=== PATIENT | female | born 1985 | race African-American/Black ===

== ENCOUNTER 2016-07-06 13:37 | Emergency (ER) | payer BC ==
[~2016-07-06] VITALS: Ht 160 cm; Wt 77.0 kg
[~2016-07-06 13:37] MED LIST: HYDR25 PO; PRED20 PO
[2016-07-06 13:49] VITALS: BP 134/66; PULSE 89; RESP 17; TEMP 97.9; O2SAT 99
[2016-07-06] MEDS ORDERED: diphenhydrAMINE HCL 50 MG/ML VIAL IV PUSH ONE (14:00)
[2016-07-06] MEDS ORDERED: prenatl vitamin (14:02)
[2016-07-06] MEDS ORDERED: SODIUM CHLOR 0.9% 1000 ML INJ 1,000 ML IV ONE (14:03)
[2016-07-06] MEDS ORDERED: FAMOTIDINE 20 MG/2 ML VIAL IV PUSH SCH (14:15)
--- NOTE | 2016-07-06 14:43 | PD ---
HPI Chief Complaint: Allergic/Adverse Reaction Time Seen by Provider: 14:37 Travel History International Travel<30 days: No Contact w/Intl Traveler<30days: No Traveled to known affect area: No History of Present Illness HPI 31-year-old female that presents to the ED for evaluation of allergic reaction. Per patient she was seen at [facility] and she was eating some chicken and some rice and after an hour of eating she started feeling that she had some burning sensation in her chest with itchiness and swelling as well as shortness of breath. She was told by her doctor which she contacted to come here. She did not took anything for this. She does have a history of for later reactions to bee stings, shellfish and Sudafed. She denies taking any of his medications. Per patient she is about 11 weeks . She denies any problem with the . No abdominal pain. No vaginal discharge. No bleeding. Per patient she follows with her OB and has had an ultrasound. She denies at this time any chest pain but she feels like she does have burning sensation in her chest that is very itchy. She states that she had some swelling on her eyes as well. She states that she only feels short of breath when she lays down. Per patient right now she feels improved. She does state that she feels like she has hives throughout her body but she hasn't actually seen one. Symptoms have been ongoing for almost an hour now. PFSH Past Medical History Diminished Hearing: No Immunizations Current: No ?: LMP: 04/18/16 : 7 Para: 1 Miscarriage: 1 : 4 Ectopic : No Ovarian Cysts: No Dilation and Curettage (D&C): Yes Tubal Ligation: No Past Surgical History Section: No Hysterectomy: No Social History Alcohol Use: No Tobacco Use: No Substance Use: No Allergies-Medications (Allergen,Severity, Reaction): Coded Allergies: Bee Sting (Verified Allergy, Severe, Swelling/rash, 07/06/16) Shellfish (Verified Allergy, Severe, 07/06/16) Sudafed (Verified Allergy, Severe, 07/06/16) Reported Meds & Prescriptions Reported Meds & Active Scripts Active Reported [prenatl vitamin] DAILY Review of Systems General / Constitutional: No: Fever, Chills, Weight Gain, Weight Loss, Other Eyes: No: Diploplia, Blurred Vision, Photophobia, Drainage, Redness, Foreign Body Sensation, Pain, Tearing, Blind Spots, Visual changes, Blindness, Other HENT: No: Headaches, Vertigo, Lightheadedness, Sore Throat, Rhinitis, Rhinorrhea, Congestion, Nosebleed, Neck Stiffness, Neck Pain, Masses, Gingival Bleeding, Dental Difficulties, Ear Discharge, Earache, Other Cardiovascular: Positive: Chest Pain or Discomfort, No: Palpitations, Irregular Rhythm, Tachycardia, Diaphoresis, Syncope, Dyspnea on exertion, Varicosities, Edema, Cyanosis, Varicosities, Phlebitis, Claudication, Other Respiratory: No: Cough, Shortness of Breath, Wheezing, Sneezing, Orthopnea, Hemoptysis, Stridor, Night Sweats, Pleuritic Pain, Other Gastrointestinal: No: Nausea, Vomiting, Diarrhea, Abdominal Pain, Hematemesis, Hematochezia, Constipation, Changes in Bowel Habits, Indigestion, Dysphagia, Loss of Appetite, Other Genitourinary: No: Urgency, Frequency, Dysuria, Nocturia, Hematuria, Decreased Urinary Output, Oliguria, Hesitancy, Dribbling, Incontinence, Pelvic Pain, Flank Pain, Dyspareunia, Discharge, Dysmenorrhea, Menorrhagia, Metorrhagia, Vaginal Bleeding, Other Musculoskeletal: No: Myalgias, Arthralgias, Limited ROM, Weakness, Cramping, Edema, Pain, Atrophy, Other Skin: Positive Rash, Positive Itching, Positive Hives, No Dryness, No Lumps, No Change in Pigmentation, No Change in nails, No Alopecia, No Lesions, No Breast Lumps, No Breast Tenderness, No Breast Swelling, No Other Neurologic: No: Weakness, Dizziness, Syncope, Focal Abnormalities, Coordination Problem, Tremor, Ataxia, Headache, Change in Mentation, Slurred Speech, Paresthesia, Incontinence, Seizures, Sensory Disturbance, Other Psychiatric: No: Anxiety, Depression, Suicidal Ideations, Disorder of Thought, Mood Disorder, Substance Abuse, Homicidal Ideation, Other Endocrine: No: Heat Intolerance, Cold Intolerance, Polyuria, Polydipsia, Other Hematologic/Lymphatic: No: Easy Bruising, Lymph Node Enlargement, Other Physical Exam Narrative GENERAL: SKIN: Warm and dry. No obvious rash noted on the arms or legs but she does have some itchiness noted on the back and torso as well as the arms and legs. No obvious hives noted. HEAD: Atraumatic. Normocephalic. EYES: Pupils equal and round 4 mm reactive to light and accommodation.. No scleral icterus. No injection or drainage. Minimal swelling noted on the eyelids ENT: No nasal bleeding or discharge. Mucous membranes pink and moist. Tongue is midline. No uvula deviation. NECK: Trachea midline. No JVD. CARDIOVASCULAR: Regular rate and rhythm. No murmurs, S3, S4. RESPIRATORY: No accessory muscle use. Clear to auscultation. Breath sounds equal bilaterally. GASTROINTESTINAL: Abdomen soft, non-tender, nondistended. Hepatic and splenic margins not palpable. MUSCULOSKELETAL: Extremities without clubbing, cyanosis, or edema. No obvious deformities. Full range of motion of the upper and lower extremities bilaterally. 2+ pulses bilaterally. NEUROLOGICAL: Awake and alert. No obvious cranial nerve deficits. Motor grossly within normal limits. Five out of 5 muscle strength in the arms and legs. Normal speech. PSYCHIATRIC: Appropriate mood and affect; insight and judgment normal. Data Data Last Documented VS Vital Signs Date Time Temp Pulse Resp B/P Pulse Ox O2 Delivery O2 Flow Rate FiO2 07/06/16 13:49 97.9 89 17 134/66 99 Orders Iv Access Insert/Monitor (07/06/16 14:00) Diphenhydramine Inj (Benadryl Inj) (07/06/16 14:00) Famotidine Inj (Pepcid Inj) (07/06/16 14:15) Sodium Chlor 0.9% 1000 Ml Inj (Ns 1000 M (07/06/16 14:03) Ed Poc Ultrasound (07/06/16 ) [facility] Medical Decision Making Medical Screen Exam Complete: Yes Emergency Medical Condition: Yes Medical Record Reviewed: Yes Differential Diagnosis Unclear reaction versus allergic dermatitis versus food poisoning versus indigestion versus Narrative Course 31-year-old female that presents to the ED for evaluation of allergic reaction. Patient was properly examined and was found to have signs and symptoms consistent with appears to be allergic reaction. Case was discussed in my attending Dr. Wrgiht who recommends benadryl and Pepcid secondary to her . She does not appear to be in acute anaphylaxis at this time and she will monitor to see if any improvement. Ultrasound was performed by my attending who states that the baby looks fine. IUP noted. At this time patient feels improved. Swelling is improved. Recommendation at this time is for follow-up outpatient. Take Benadryl as needed. See ED worsening symptoms. My attending agrees with plan. Diagnosis Primary Impression: Allergic reaction Qualified Code: T78.40XA - Allergic reaction, initial encounter Patient Instructions: General Instructions Additional Instructions: Take Benadryl for the reaction. Only as needed. See ED worsening symptoms. Med/Other Pt SpecificInfo: No Change to Meds Disposition: 01 DISCHARGE HOME Condition: Stable Booker Machado Jul 06, 2016 14:43
--- NOTE | 2016-07-06 15:45 | PD ---
Data Data Last Documented VS Vital Signs Date Time Temp Pulse Resp B/P Pulse Ox O2 Delivery O2 Flow Rate FiO2 07/06/16 13:49 97.9 89 17 134/66 99 Orders Iv Access Insert/Monitor (07/06/16 14:00) Diphenhydramine Inj (Benadryl Inj) (07/06/16 14:00) Famotidine Inj (Pepcid Inj) (07/06/16 14:15) Sodium Chlor 0.9% 1000 Ml Inj (Ns 1000 M (07/06/16 14:03) Ed Poc Ultrasound (07/06/16 ) MDM Supervised Visit with ANDREW: Yes Narrative Course I, Dr. Wright, have reviewed the advance practice practitioner's documentation and am in agreement, met with the patient face to face, made the diagnosis, and the medical decision making was done by me. *My assessment and Findings: Agree with ANDREW's documentation. Briefly this a 31- year-old female who presents 12 weeks gestational age by my ultrasound today with mild allergic reaction. She has minimal edema of her upper lip on my examination and no airway involvement. She was given Benadryl in the emergency department. Given the mild nature of her symptoms stopped that the risk of epinephrine, steroids far outweighs any potential benefit at this time. She was observed in the emergency department. She did say to me that she thought her reaction was mild enough that she would have stayed home but because she was she needed to come in and see what she could take during allergic reaction. I discussed with her after her ultrasound was reassuring that I agree her reaction seems very mild at this time. Discussed that she can take Benadryl home safety given . I discussed that if she ever has any symptoms of choking or difficulty breathing that she should call 911 immediately. Procedures Procedure Narrative Bedside ultrasound transabdominal OB: Transabdominal views were obtained of the uterus shows a single intrauterine with heart tones by M- mode 260. No gross abnormalities, no free pelvic fluid. Patient's biparietal diameter measures at 12 weeks 1 days. Diagnosis Primary Impression: Allergic reaction Qualified Code: T78.40XA - Allergic reaction, initial encounter Patient Instructions: General Instructions Additional Instruction: Take Benadryl for the reaction. Only as needed. See ED worsening symptoms. Disposition: 01 DISCHARGE HOME Condition: Stable Christopher Wright MD Jul 06, 2016 15:45
[2016-07-08] MEDS ORDERED: CALNTAB PO (00:37)
== END 2016-07-06 16:17 | disposition home or self-care (01) ==
LOC: NEPC 13:37
DX: O26.891 Other specified pregnancy related conditions, first trimester (principal); T78.40XA Allergy, unspecified, initial encounter; L29.9 Pruritus, unspecified; R60.9 Edema, unspecified; R06.02 Shortness of breath; Z3A.12 12 weeks gestation of pregnancy
CPT/HCPCS: 96361; 96374; 96375; 99283; J1200; J7030

== ENCOUNTER → 2016-07-07 | Outpatient (CLI) | payer BC ==
[~2016-07-07] MED LIST changes: +CALNTAB PO; -HYDR25 PO; -PRED20 PO; +prenatl vitamin
== END ==
LOC: HPND 10:21
PROVIDERS: ATTEND Obstetrics & Gynecology
DX: Z36 Encounter for antenatal screening of mother (principal); N96 Recurrent pregnancy loss; Z3A.10 10 weeks gestation of pregnancy
CPT/HCPCS: 76801

== ENCOUNTER → 2016-07-21 | Outpatient (CLI) | payer BC ==
[~2016-07-21] MED LIST changes: -prenatl vitamin
== END ==
LOC: HPND 08:09
PROVIDERS: ATTEND Obstetrics & Gynecology
DX: Z36 Encounter for antenatal screening of mother (principal)
CPT/HCPCS: 36416; 76813

== ENCOUNTER 2016-08-23 18:40 | Emergency (ER) | payer BC ==
[~2016-08-23] VITALS: Ht 162.6 cm; Wt 79.0 kg
[2016-08-23 18:44] VITALS: BP 130/70; PULSE 90; RESP 18; TEMP 98.5; O2SAT 100
--- NOTE | 2016-08-23 18:48 | PD ---
Physical Exam Date Seen by Provider: Aug 23, 2016 Time Seen by Provider: 18:45 Narrative 31 y/o female presents with 3 weeks SOB, Cough and congestion. Patient has HERNADEZ, but denies Sinus drainage, sore throat or fever. Patient 5 months . V/S Stable Awaiting bed placement. [facility] Medical Record Reviewed: Yes Supervised Visit with ANDREW: Yes Condition: Stable Rolando Cheney Aug 23, 2016 18:48
--- NOTE | 2016-08-23 19:41 | PD ---
HPI Chief Complaint: Respiratory Symptoms Time Seen by Provider: 19:13 Travel History International Travel<30 days: No Contact w/Intl Traveler<30days: No Traveled to known affect area: No History of Present Illness HPI Patient is a 31-year-old female who is 5 months presents to the emergency Department with shortness breath over the past 2-3 weeks. Patient states she's also been having some mild chest discomfort particularly when she takes deep breath. She denies any history of stasis or blood clots. 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 The patient states that she started having chest pain she decided to come in and be seen. She also endorses some mild sore throat and cough not productive of any sputum. She denies any fevers. Denies any abdominal pain nausea vomiting diarrhea vaginal bleeding vaginal discharge loss of fluid. PFSH Past Medical History Medical History: Denies Significant Hx Diminished Hearing: No Immunizations Current: No Tetanus Vaccination: < 5 Years Influenza Vaccination: No ?: LMP: 04/18/17 : 7 Para: 1 Miscarriage: 1 : 4 Ectopic : No Ovarian Cysts: No Dilation and Curettage (D&C): Yes Tubal Ligation: No Past Surgical History Surgical History: No Previous Surgery Section: No Hysterectomy: No Social History Alcohol Use: No Tobacco Use: No Substance Use: No Allergies-Medications (Allergen,Severity, Reaction): Coded Allergies: Bee Sting (Verified Allergy, Severe, Swelling/rash, 08/23/16) Shellfish (Verified Allergy, Severe, 08/23/16) Sudafed (Verified Allergy, Severe, 08/23/16) Reported Meds & Prescriptions Reported Meds & Active Scripts Active Reported Calna ( Vitamin) 1 Tab Tab 1 Tab PO DAILY Review of Systems Except as stated in HPI: all other systems reviewed are Neg Physical Exam Narrative GENERAL: Well-developed well-nourished no apparent distress. SKIN: Focused skin assessment warm/dry. HEAD: Atraumatic. Normocephalic. EYES: Pupils equal and round. No scleral icterus. No injection or drainage. ENT: No nasal bleeding or discharge. Mucous membranes pink and moist. NECK: Trachea midline. No JVD. CARDIOVASCULAR: Regular rate and rhythm. No murmur appreciated. 2+ bilateral equal pulses in all 4 extremity's RESPIRATORY: No accessory muscle use. Clear to auscultation. Breath sounds equal bilaterally. GASTROINTESTINAL: Abdomen soft, non-tender, gravid abdomen. Hepatic and splenic margins not palpable. MUSCULOSKELETAL: No obvious deformities. No clubbing. No cyanosis. No edema. NEUROLOGICAL: Awake and alert. No obvious cranial nerve deficits. Motor grossly within normal limits. Normal speech. PSYCHIATRIC: Appropriate mood and affect; insight and judgment normal. Data Data Last Documented VS Vital Signs Date Time Temp Pulse Resp B/P Pulse Ox O2 Delivery O2 Flow Rate FiO2 08/23/16 19:07 84 18 99 Room Air 08/23/16 18:44 98.5 130/70 Orders Chest, Pa & Lat (08/23/16 ) Electrocardiogram (08/23/16 ) [facility] Medical Decision Making Medical Screen Exam Complete: Yes Emergency Medical Condition: Yes Interpretation(s) EKG shows normal sinus rhythm normal axis and normal R-wave progression. No concerning ST T changes. Intervals within normal limits. This normal EKG Differential Diagnosis CHF unlikely, pneumonia, asthma unlikely, PE seems unlikely, cardiomyopathy seems unlikely, URI. Narrative Course 31-year-old female 5 months appears well plan was for a screening EKG and screening chest x-ray as a start. The patient has refused this chest x-ray sighting risk of radiation. I discussed with the patient that we would shield the baby but they would still be a small risk. I suggested to her that without this I wouldn't be able to move forward into any other workup. The patient has taken some time to consider this and would rather follow up with her [employer] OF [employer]PERATIONS rather than have a chest x-ray. I think this is fairly this time but I would like the patient sign out AMA and she has done so. I discussed that she is looking to return to the emergency department a time should she reconsider the need for a chest x-ray. Diagnosis Primary Impression: Shortness of breath Additional Instructions: Please follow-up with your [employer]OR OF [employer]AIL [employer]PERATIONS you're welcome to return tumor department any time for evaluation. Disposition: AGAINST MEDICAL ADVICE Condition: Stable Christopher Wright MD Aug 23, 2016 19:41
--- NOTE | 2016-08-24 22:57 | EKG ---
Date Performed: 08/23/2016 Time Performed: 19:31:58 PTAGE: 31 years EKG: Sinus rhythm NORMAL ECG PREVIOUS TRACING : 12/23/2007 10.28 Compared to prior tracing no significant change DOCTOR: Nahum Fontanez Interpretating Date/Time 08/24/2016 22:55:23
== END 2016-08-23 20:13 | disposition left against medical advice (07) ==
LOC: NEPD 18:40
DX: O26.892 Other specified pregnancy related conditions, second trimester (principal); R06.02 Shortness of breath; R05 Cough; Z3A.00 Weeks of gestation of pregnancy not specified
CPT/HCPCS: 93005

== ENCOUNTER → 2016-08-25 | Outpatient (CLI) | payer BC | LOC: HPND 09:07 | PROVIDERS: ATTEND Obstetrics & Gynecology | DX: O35.1XX0 Maternal care for (suspected) chromosomal abnormality in fetus, not applicable or unspecified (principal) | CPT/HCPCS: 76811 ==

== ENCOUNTER → 2016-10-22 | Outpatient (CLI) | payer BC | LOC: HPND 09:24 | PROVIDERS: ATTEND Obstetrics & Gynecology | DX: O44.02 Complete placenta previa NOS or without hemorrhage, second trimester (principal); O36.8920 Maternal care for other specified fetal problems, second trimester, not applicable or unspecified | CPT/HCPCS: 76816; 76817 ==